=== PATIENT | female | born 1930 | race Caucasian/White ===

== ENCOUNTER 2019-09-09 16:45 | Inpatient (IN) | payer MEDICARE ==
[2019-09-09] MEDS ORDERED: ASPIRIN 81 MG CHEW TAB PO ONE (17:07)
[2019-09-09 17:16] LABS: BASOPHILS % 0.5 % (0.0-1.5); NEUTROPHILS # 12.2 # k/uL (1.4-7.7)
--- NOTE | 2019-09-09 17:19 | ED Physician Documentation ---
Chest Pain - HISTORIAN Historian: patient - HPI Stated Complaint: chest pain Chief Complaint: Chest Pain Additional Information: Patient presents to ED with sudden onset of chest pain. Patient was visiting a friend at the hospital when she began to have substernal chest pain, dullache, 06/27, nonradiating. She denies shortness of breath, nausea, diaphoresis or dizziness associated with the chest pain. Patient was transported to ER via wheel chair. Upon presentation her Sa02 was 85% on room air. Once oxygen was applied her chest pain resolved. Patient was recently hospitalized after a fall and was discharged 2 days ago. She reports swelling in legs and arms for past week. EKG revealed afib with RVR, 111 bpm. Onset: minutes (10) Timing: sudden onset Duration: constant Last known Well Date: 09/09/19 Last Known Well Time: 16:30 Last known Well Code/Unknown Code: Known Context: rest Severity: moderate Quality: dull, aching Chest Pain Radiation: no radiation Chest Pain Signs/Symptoms: denies: nausea, vomiting, diaphoresis, dizziness, dyspnea Worsened By: exertion Relieved By: oxygen - ROS CONST: none MS/LYMPH: none GI/: denies: vomiting, nausea EYES/ENT: none SKIN/ENDO: recent weight change NEURO/PSYCH: none - PAST HX MS risk factors: CHF, A-Fib DVT/PE Risk Factors: leg swelling TAD/AAA risk factors: none Neuro deficit: none GI disease: none Lung disease: none Surgeries/Procedures: none Allergies/Adverse Reactions: Allergies Allergy/AdvReac Type Severity Reaction Status Date / Time milk Allergy Verified 09/09/19 17:09 Home Medications: Ambulatory Orders Medication Instructions Recorded Amoxicillin/Potassium Clav 1 tab PO Q8H 09/09/19 [Amox-Clav 500-125 mg Tablet] Apixaban [Eliquis] 5 mg PO BID 09/09/19 Baclofen 5 mg PO TID 09/09/19 Diltiazem HCl [Diltiazem 24Hr Cd] 180 cap PO DAILY 09/09/19 Ezetimibe [Zetia] 10 mg PO DAILY 09/09/19 Gabapentin [Neurontin] 1 tab PO 1200 09/09/19 Gabapentin [Neurontin] 2 tab PO BID 09/09/19 Hydralazine HCl 25 mg PO TID 09/09/19 Pantoprazole Sodium [Protonix] 40 mg PO DAILY 09/09/19 - SOCIAL HX Smoking History: non-smoker Alcohol Use: none Drug Use: none - FAMILY HX Family HX: none - REVIEWED ASSESSMENTS Nursing Assessment Reviewed: Yes Vitals Reviewed: Yes Progress - Progress Progress: [address] Chu, agrees with admission. ED Results Lab/Radiology - Radiology Radiology Impressions: Ap portable upright radiographs of the chest Clinical history: Chest pain Technique: anterior /posterior portable upright Findings: There is cardiomegaly and pulmonary vascular congestion. Bilateral pulmonary infiltrates are present. There is bilateral costophrenic angle blunting. Aortic arch calcification is present. 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 Impression: Congestive heart failure and pulmonary edema Possible pleural effusions - Orders Orders: ED Orders Category Date Time Status Place IV Lock 1T Care 09/09/19 16:53 Active CHEST 1VIEW [RAD] Stat Exams 09/09/19 Ordered CBC/PLATELET/DIFF Routine Lab 09/09/19 17:11 Received CMP Routine Lab 09/09/19 17:11 Received NT BNP Stat Lab 09/09/19 17:11 Received TROPONIN I Stat Lab 09/09/19 17:11 Received Aspirin [Paige] Med 09/09/19 17:07 Discontinued 324 mg PO NOW ONE Oxygen Daily Oxygen 09/09/19 17:15 Ordered EKG WITH COMPARISON Stat Ther 09/09/19 Ordered Chest Pain Physical Exam - EXAM General Appearance: mild distress EENT: SIMIN Neck: nml inspection, JVD present Respiratory: decreased air movement, other (bibasilar crackles) CVS: irregularly irreg. rhythm, tachycardia Abdomen: soft, normal bowel sounds, non-tender Skin: warm/dry Extremities: edema (+3 pitting edema bilaterally to thigh) Neuro: oriented X3, mood/affect nml Discharge Clincal Impression: Atrial fibrillation with rapid ventricular response Acute congestive heart failure Qualifiers: Heart failure type: systolic Qualified Code(s): I50.21 - Acute systolic (congestive) heart failure Referrals: Primary Doctor,No [Primary Care Provider] - 2 Days Comments: Admit to Dr. Chu acute. Condition: Stable Disposition: ADMITTED INPATIENT Decision to Admit: [id number] Date of Decison to Admit: 09/09/19 Decision Time: 18:39
[2019-09-09 17:39] LABS: eGFR (Non-African) > 60
[2019-09-09] MEDS ORDERED: FUROSEMIDE 40 MG/4 ML VIAL IVP ONE (18:19)
--- NOTE | 2019-09-09 19:23 | History and Physical Report ---
History of Present Illnes - History of Present Illness Reason for Visit: Chest pain History of Present Illness: Patient was at the hospital visiting her daughter when she developed sudden chest pain. Substernal 06/27. Nonradiating. Denied SOB, nausea, dizzy, diaphoresis. She was hospitalized after a fall in [place] until 2 days ago. She is currently on augmentin and during the hospitalization her lasix was stopped. (We are still waiting on old records). She has noted swelling since then. Had an EGD when in the hospital because she was "filling up with fluid." Stopped lasix on d/c because "don't need it anymore." She also had Echo while in the hospital. In the ER, she was found to have SAT 85%. O2 was applied and chest pain resolved. She was in afib with RVR - rate 110 - she says this is normal for her. BNP elevated and exam/CXR consistent with CHF. She will be admitted for treatment of CHF> - Past Medical History Cardiac: AFIB, CAD, CHF, HTN Pulmonary: Other (given O2 this week on d/c from hospital) Musculoskeletal: Chronic low back pain - Past Surgical History Past Surgical History: Cataract Removal, Tonsillectomy, Other (cardiac stent 2016) - Past Family History Mother Family History: CAD (68), Father Family History: , Other (CRF 58 yo) - Past Social History Smoke: No Alcohol: None Drugs: None Lives: Alone - Health Maintenance Health Maintenance: Influenza Vaccine, Pneumococcal Vaccine Influenza Vaccine: Current for this Influenza Season Pneumonia Vaccine: Yes Resuscitation Status: Resusciation Status Resuscitation Status Do Not Resuscitate Review of Systems - Review of Systems Constitutional: negative: Fever, Weakness Eyes: negative: conjunctivae inflammation ENT: negative: Ear Pain, Ear Discharge Respiratory: negative: Cough, Shortness of Breath Cardiovascular: Chest Pain, Palpitations Gastrointestinal: negative: Nausea, Vomiting, Abdominal Pain Genitourinary: negative: Dysuria Musculoskeletal: negative: Neck Pain Skin: negative: Rash Neurological: negative: Weakness - Medications/Allergies Allergies/Adverse Reactions: Allergies Allergy/AdvReac Type Severity Reaction Status Date / Time milk Allergy Verified 09/09/19 17:09 Home Medications: Home Medications Amoxicillin/Potassium Clav [Amox-Clav 500-125 mg Tablet] 1 tab PO Q8H 09/09/19 Apixaban [Eliquis] 5 mg PO BID 10/23/19 Baclofen 5 mg PO TID 09/09/19 Diltiazem HCl [Diltiazem 24Hr Cd] 180 cap PO DAILY 09/09/19 Ezetimibe [Zetia] 10 mg PO DAILY 09/09/19 Gabapentin [Neurontin] 1 tab PO 1200 09/09/19 Gabapentin [Neurontin] 2 tab PO BID 09/09/19 Hydralazine HCl 25 mg PO TID 09/09/19 Pantoprazole Sodium [Protonix] 40 mg PO DAILY 09/09/19 Current Inpatient Medications: Current Inpatient Medications Amoxicillin/Clavulanate Potassium (Augmentin 500-125 Mg Tablet) each PO BID MARY LOU Stop: 09/14/19 20:59 Apixaban (Eliquis) 5 mg PO BID MARY LOU Stop: 10/09/19 20:59 Diltiazem HCl (Cardizem Cd) mg PO DAILY MARY LOU Stop: 10/10/19 08:59 Furosemide (Lasix) 40 mg IVP QDAY MARY LOU Stop: 10/10/19 07:59 Gabapentin (Neurontin) mg PO 1200 MARY LOU Stop: 10/10/19 11:59 Gabapentin (Neurontin) mg PO BID MARY LOU Stop: 10/09/19 20:59 Hydralazine HCl (Apresoline) 25 mg PO TID MARY LOU Stop: 10/10/19 08:59 Miscellaneous (Baclofen [Baclofen]) 5 mg PO TID MARY LOU Stop: 10/10/19 08:59 Pantoprazole Sodium (Protonix) 40 mg PO DAILY MARY LOU Stop: 10/10/19 08:59 Exam - Exam General: Alert, Oriented to Person, Oriented to Place, Oriented to Time, Cooperative HEENT: PERRLA, EOMI, Mouth Mucous membr. moist/[place] Neck: Normal Range of Motion Lungs: Rhonchi Cardiovascular: Irregularly Irregular Abdomen: Normal bowel sounds Integumentary: Normal Extremities: No: No edema Neurological: Normal gait Psych/Mental Status: Mental status NL, Mood NL, Appropriate Affect, Intact Judgment - Laboratory Results Laboratory Results: Laboratory Results 09/09/19 09/09/19 09/09/19 17:11 17:11 17:11 WBC 15.70 H RBC 3.64 L Hgb 11.8 Hct 34.3 L MCV 94.0 MCH 32.3 MCHC 34.3 RDW 11.8 Plt Count 179 Neut % (Auto) 78.2 Lymph % (Auto) 12.6 L [place] % (Auto) 6.0 Eos % (Auto) 2.7 Baso % (Auto) 0.5 Neut # (Auto) 12.2 H Lymph # (Auto) 2.0 [place] # (Auto) 0.9 Eos # (Auto) 0.4 Baso # (Auto) 0.1 Sodium 140 Potassium 4.6 Chloride 100 Carbon Dioxide 32 H Anion Gap 12.6 BUN 21 H Creatinine 0.82 Est GFR ( Amer) > 60 Est GFR (Non-Af Amer) > 60 Glucose 115 H Calcium 8.2 L Total Bilirubin 0.9 AST 54 H ALT 52 H Alkaline Phosphatase 63 Troponin I 0.025 NT-Pro-B Natriuret Pep 3805.0 H Total Protein 6.9 Albumin 3.5 Assessment/Plan - Assessment/Plan (1) Hypoxia Status: Acute Current Visit: Yes Plan: Improve with 2 liters O2. Suspect we will be able to wean off once we have her diuresed. (2) Acute congestive heart failure Status: Acute Current Visit: Yes Qualifiers: Heart failure type: systolic Qualified Code(s): I50.21 - Acute systolic (congestive) heart failure Plan: Admit for IV lasix. Watch BP and potassium. Unsure of last echo or why not on ACEI/ARB. Will get old records and plan for patient to see PCP quickly after discharge. (3) Atrial fibrillation with rapid ventricular response Status: Chronic Current Visit: Yes Plan: On CCB and Xarelto. Watch rate on tele. May need to increase CCB. Check cardiac enzymes. (4) CAD (coronary artery disease) Status: Acute Current Visit: Yes Qualifiers: Coronary Disease-Associated Artery/Lesion type: [place] artery [place] vs. transplanted heart: [place] heart Associated angina: without angina Qualified Code(s): I25.10 - Atherosclerotic heart disease of [place] coronary artery without angina pectoris Plan: Serial enzymes VTE Assessment - RISK FACTOR SCORE VTE RISK FACTOR SCORES: AGE OVER 60 YEARS, CONGESTIVE HEART FAILURE OR MYOCARDIAL INFARCTION - RISK VTE MODERATE RISK: SCORE OF 2 (RISK PROXIMAL DVT 2-4%) PROPHYAXIS NEEDED
[2019-09-10] MEDS: APIXABAN 5 MG TABLET PO SCH ×3 (03:30→20:44)
[2019-09-10 03:56] VITALS: BMI 36.8
--- NOTE | 2019-09-10 07:07 | Diagnostic Imaging Report ---
PATIENT MR#: [id number] PATIENT PATIENT NAME: DARYA IRVING DATE OF : 1930 REFERRING PHYSICIAN: Patti Chu EXAM DATE: 09/10/2019 ACCESSION NUMBER: [id number] EXAM DESCRIPTION: CHEST 1 VIEW Exam: AP chest. History: Shortness of breath. The examination is compared to study dated September 09, 2019. Lung xavier are very well aerated. Diminished yet persistent perihilar and right upper lobe infiltra krys are noted. No pleural effusions are seen. Heart and mediastinal contour are stable. Impression: Diminished yet persistent perihilar and right upper lobe infiltrates. Read by: Dr. Juan Luis Gonzalez Transcribed by: Transcribed Date: Electronically signed by: Dr. Juan Luis Gonzalez Date signed: 09/10/2019 7:07:13 AM
[2019-09-10 07:29] LABS: BASOPHILS % 0.4 % (0.0-1.5); NEUTROPHILS # 9.1 # k/uL (1.4-7.7)
[2019-09-10 07:46] LABS: eGFR (Non-African) > 60
[2019-09-10] MEDS ORDERED: FUROSEMIDE 40 MG/4 ML VIAL IVP SCH ×3 (08:00→14:00)
--- NOTE | 2019-09-10 08:08 | Inpatient Progress Note ---
Subjective - Required Recertification Statement I anticipate X number of days because-include discharge plan: 1 - Review of Systems Subjective: Patient is feeling some better. Breathing better. Objective - Exam Vitals and I&O: Vital Signs Temp 97.8 F 09/10/19 05:40 Pulse 94 H 09/10/19 05:40 Resp 18 09/10/19 05:40 BP 167/98 09/10/19 05:40 Pulse Ox 96 09/10/19 05:40 Intake & Output 09/09/19 09/09/19 09/10/19 11:59 23:59 11:59 Intake Total 0 0 Output Total 2500 Balance 0 -2500 Weight 88.451 kg 86.183 kg Intake: IV 0 0 Right Hand 0 0 Output: Urine 2500 Other: Voiding Method Bedside Commode Bedside Commode # Bowel Movements 0 General: Alert, Oriented to Person, Oriented to Place, Oriented to Time, Cooperative, No acute distress Lungs: Clear to auscultation, Normal air movement, Speaks full Sentences Cardiovascular: Irregularly Irregular - Results Results: Laboratory Results WBC 11.80 K/ul (4.00-12.00) 09/10/19 06:40 RBC 3.50 M/ul (3.90-5.20) L 09/10/19 06:40 Hgb 11.3 g/dL (11.5-16.0) L 09/10/19 06:40 Hct 32.7 % (34.5-46.5) L 09/10/19 06:40 MCV 93.0 fl (80.0-100.0) 09/10/19 06:40 MCH 32.2 pg (28.0-34.0) 09/10/19 06:40 MCHC 34.5 g/dL (30.0-36.0) 09/10/19 06:40 RDW 11.8 % (11.3-14.3) 09/10/19 06:40 Plt Count 185 K/mm3 (130-400) 09/10/19 06:40 Neut % (Auto) 77.3 % (39.0-79.0) 09/10/19 06:40 Lymph % (Auto) 12.8 % (16.0-50.0) L 09/10/19 06:40 [place] % (Auto) 7.4 % (0.0-11.0) 09/10/19 06:40 Eos % (Auto) 2.1 % (0.0-6.8) 09/10/19 06:40 Baso % (Auto) 0.4 % (0.0-1.5) 09/10/19 06:40 Neut # (Auto) 9.1 # k/uL (1.4-7.7) H 09/10/19 06:40 Lymph # (Auto) 1.5 # k/uL (0.6-4.0) 09/10/19 06:40 [place] # (Auto) 0.9 # k/uL (0.0-0.9) 09/10/19 06:40 Eos # (Auto) 0.3 # k/uL (0.0-0.6) 09/10/19 06:40 Baso # (Auto) 0.1 # k/uL (0.0-0.5) 09/10/19 06:40 Sodium 141 mmol/L (137-145) 09/10/19 06:40 Potassium 3.9 mmol/L (3.5-5.1) 09/10/19 06:40 Chloride 98 mmol/L (98-107) 09/10/19 06:40 Carbon Dioxide 37 mmol/L (22-30) H 09/10/19 06:40 Anion Gap 9.9 09/10/19 06:40 BUN 18 mg/dL (7-17) H 09/10/19 06:40 Creatinine 0.91 mg/dL (0.52-1.04) 09/10/19 06:40 Estimated Creat Clear 67 09/10/19 06:40 Est GFR ( Amer) > 60 (60-) 09/10/19 06:40 Est GFR (Non-Af Amer) > 60 (60-) 09/10/19 06:40 Glucose 87 mg/dL (74-106) 09/10/19 06:40 Calcium 8.3 mg/dL (8.4-10.2) L 09/10/19 06:40 Total Bilirubin 0.9 mg/dL (0.2-1.3) 09/09/19 17:11 AST 54 U/L (15-46) H 09/09/19 17:11 ALT 52 U/L (0-35) H 09/09/19 17:11 Alkaline Phosphatase 63 U/L (38-126) 09/09/19 17:11 Troponin I 0.023 ng/mL (0.012-0.034) 09/10/19 06:40 NT-Pro-B Natriuret Pep 3805.0 pg/mL (15.0-450.0) H 09/09/19 17:11 Total Protein 6.9 g/dL (6.3-8.2) 09/09/19 17:11 Albumin 3.5 g/dL (3.5-5.0) 09/09/19 17:11 Assessment/Plan - Assessment/Plan (1) Hypoxia Status: Acute Current Visit: Yes (2) Acute congestive heart failure Status: Acute Current Visit: Yes Qualifiers: Heart failure type: systolic Qualified Code(s): I50.21 - Acute systolic (congestive) heart failure Plan: Improving with lasix IV. Await med records. CXR read as infiltrate but suspect this is old finding - finishing augmentin from hospital last week. No cough, fever, or leukocytosis. (3) Atrial fibrillation with rapid ventricular response Status: Chronic Current Visit: Yes Plan: Will increase diltiazem to 240 mg. Watch BP and pulse. (4) CAD (coronary artery disease) Status: Acute Current Visit: Yes Qualifiers: Coronary Disease-Associated Artery/Lesion type: [place] artery [place] vs. transplanted heart: [place] heart Associated angina: without angina Qualified Code(s): I25.10 - Atherosclerotic heart disease of [place] coronary artery without angina pectoris
[2019-09-10] MEDS ORDERED: BACLOFEN 10 MG TABLET PO ONE (08:40)
[2019-09-10] MEDS ORDERED: APIXABAN 5 MG TABLET PO ONE (08:40)
[2019-09-10] MEDS: hydrALAZINE HCL 25 MG TABLET PO SCH ×3 (08:54→18:01)
[2019-09-10] MEDS: BACLOFEN 10 MG TABLET PO SCH ×3 (08:54→18:01)
[2019-09-10] MEDS: PANTOPRAZOLE SODIUM 40 MG TABLET.DR PO SCH (08:56)
[2019-09-10] MEDS: POTASSIUM CLAV PO SCH ×3 (09:38→20:43)
[2019-09-10] MEDS: AMOXICILLIN PO SCH ×3 (09:38→20:43)
[2019-09-10] MEDS: GABAPENTIN 300 MG CAPSULE PO SCH ×4 (09:38→20:43)
--- NOTE | 2019-09-10 13:17 | Diagnostic Imaging Report ---
[facility] [id number] [place] [address] Patient Name: DARYA IRVING Referring Physician: PUMA HOWARD Date of : 1930 Radiologist: Gender: F Date of Service: 09/09/2019 Exam Requested: CHEST 1VIEW Page 1 of 1 Ap portable upright radiographs of the chest Clinical history: Chest pain Technique: anterior /posterior portable upright Findings: There is cardiomegaly and pulmonary vascular congestion. Bilateral pulmonary infiltrates are present. There is bilateral costophrenic angle blunting. Aortic arch calcification is present. 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 Impression: Congestive heart failure and pulmonary edema Possible pleural effusions [facility]
[2019-09-10] MEDS: FUROSEMIDE 20 MG/2 ML VIAL IVP SCH (14:13)
[2019-09-11] MEDS: GABAPENTIN 300 MG CAPSULE PO SCH ×2 (10:00→11:54)
[2019-09-11] MEDS: APIXABAN 5 MG TABLET PO SCH (10:00)
[2019-09-11] MEDS: AMOXICILLIN PO SCH (10:00)
[2019-09-11] MEDS: POTASSIUM CLAV PO SCH (10:00)
[2019-09-11] MEDS: hydrALAZINE HCL 25 MG TABLET PO SCH (10:01)
[2019-09-11] MEDS: BACLOFEN 10 MG TABLET PO SCH (10:01)
[2019-09-11] MEDS: PANTOPRAZOLE SODIUM 40 MG TABLET.DR PO SCH (10:02)
[2019-09-11] MEDS: FUROSEMIDE 20 MG/2 ML VIAL IVP SCH (10:02)
[2019-09-11] MEDS ORDERED: POTASSIUM CHLORIDE 20 MEQ TABLET.ER PO ONE (10:20)
--- NOTE | 2019-09-11 10:25 | Discharge Summary ---
Discharge Summary - Discharge [facility] Admission Date: 09/09/19 Discharge Date: 09/11/19 Discharge To: Home History of Present Illness: Patient was at the hospital visiting her daughter when she developed sudden chest pain. Substernal 06/27. Nonradiating. Denied SOB, nausea, dizzy, diaphoresis. She was hospitalized after a fall in [place] until 2 days ago. She is currently on augmentin and during the hospitalization her lasix was stopped. (We are still waiting on old records). She has noted swelling since then. Had an EGD when in the hospital because she was "filling up with fluid." Stopped lasix on d/c because "don't need it anymore." She also had Echo while in the hospital. In the ER, she was found to have SAT 85%. O2 was applied and chest pain resolved. She was in afib with RVR - rate 110 - she says this is normal for her. BNP elevated and exam/CXR consistent with CHF. She will be admitted for treatment of CHF> According to old records she was in ICU 09-03-19 with hypoxia, afib/RVR. EGD due to h/o blood tinged sputum. Zosyn for suspect aspiration pneumonia. IV lasix and po cardizem. Ordered CPAP at 15 cm H2O. Discharged with augmentin for 7 days. I do not see any mention of lasix or echo but EKG shows chronic RBBB. Condition at Discharge: Stable Home Medications: Ambulatory Orders Medication Instructions Recorded Apixaban [Eliquis] 5 mg PO BID 09/09/19 Baclofen 5 mg PO TID 09/09/19 Ezetimibe [Zetia] 10 mg PO DAILY 09/09/19 Gabapentin [Neurontin] 1 tab PO 1200 09/09/19 Gabapentin [Neurontin] 2 tab PO BID 09/09/19 Hydralazine HCl 25 mg PO TID 09/09/19 Pantoprazole Sodium [Protonix] 40 mg PO DAILY 09/09/19 Amoxicillin/Potassium Clav 1 tab PO BID #0 09/10/19 [Amox-Clav 500-125 mg Tablet] Furosemide [Lasix] 20 mg PO DAILY #30 tablet 09/10/19 dilTIAZem HCL [Cardizem CD] 240 mg PO DAILY #30 cap.er.24h 09/10/19 Consultations this Visit: None Procedures this Visit: None Allergies/Adverse Reactions: Allergies Allergy/AdvReac Type Severity Reaction Status Date / Time milk Allergy Verified 09/09/19 17:09 Discharge Summary: Patient was admitted with CHF exacerbation after her lasix was stopped in a prior hospitalization. She was diuresed with IV lasix and tolerated it well. [place] much better within 24 hours. She will be discharged on her home O2. She had HR 110-120 with BP 160's so her cardizem CD was increased from 180 mg to 240 mg daily. HR and BP improved. On day 3 she was asking for discharge and it was felt she was stable for this. Will have her follow up with PCP next week. Daughter believes ECHO was done in past 2 weeks. Unsure why she isn't on ACEI or BBlocker with her CHF. I will leave this up to the discretion of her PCP. Hospital Course: Discharge Dx. CHF exacerbation. Afib with RVR. Hypoxia
[2019-09-11 12:57] VITALS: BP 158/81
== END 2019-09-11 12:50 | disposition home or self-care (01) | DRG 292 ==
LOC: ED 16:45 → SOUTH 19:02
PROVIDERS: ADMIT Family Medicine; ATTEND Family Medicine
DX: I11.0 Hypertensive heart disease with heart failure (principal); I48.20 Chronic atrial fibrillation, unspecified; I50.23 Acute on chronic systolic (congestive) heart failure; E78.5 Hyperlipidemia, unspecified; K21.9 Gastro-esophageal reflux disease without esophagitis; G47.33 Obstructive sleep apnea (adult) (pediatric); R09.02 Hypoxemia; I45.10 Unspecified right bundle-branch block; I25.10 Atherosclerotic heart disease of native coronary artery without angina pectoris; Z66 Do not resuscitate; G50.0 Trigeminal neuralgia; G89.29 Other chronic pain; M54.5 Low back pain; H35.30 Unspecified macular degeneration; E11.9 Type 2 diabetes mellitus without complications; E55.9 Vitamin D deficiency, unspecified; R41.3 Other amnesia; Z99.81 Dependence on supplemental oxygen; Z91.011 Allergy to milk products; Z98.49 Cataract extraction status, unspecified eye; Z95.5 Presence of coronary angioplasty implant and graft; Z79.899 Other long term (current) drug therapy; Z79.01 Long term (current) use of anticoagulants
CPT/HCPCS: 36415; 71045; 80048; 80053; 83880; 84484; 85025; 93005; A9270; J1940; 99024; 99238; S1016